=== PATIENT | female | born 1990 | race Caucasian/White ===

== ENCOUNTER 2020-10-22 21:04 | Emergency (ER) | payer OTHER ==
--- NOTE | 2020-10-22 21:21 | NUR ---
PT LEFT WITHOUT BEING TRIAGED ABD BE SEEN BY DR. BLAINE JACKMAN AND HER SHE WOULD LIKE TO HAVE AN ENDOSCOPY IN ER, PT LEFT WITHOUT BEING TRIAGED. PT WAS ADVISED TO COME BACK TO THE ER FOR ANY EMERGENCIES.
== END 2020-10-22 21:25 | disposition left against medical advice (07) ==
LOC: ER 21:08
DX: Z53.21 Procedure and treatment not carried out due to patient leaving prior to being seen by health care provider (principal)

== ENCOUNTER → 2023-03-03 | Emergency (ER) | payer OTHER ==
[~2023-03-03] VITALS: Ht 157.5 cm; Wt 56.2 kg
[~2023-03-03] MED LIST: LORAZEPAM 1 MG TABLET ONE; LORAZEPAM 1 MG TABLET PO ONE
[2023-03-03 17:19] LABS: APPEARANCE,URINE SLIGHTLY CLOUDY (CLEAR); BILIRUBIN,URINE NEGATIVE (NEGATIVE); BLOOD, URINE TRACE-INTA Ery/uL (NEGATIVE); COLOR,URINE YELLOW (YELLOW); KETONES,URINE 2+ mg/dL (NEGATIVE); LEUKOCYTE ESTERASE ,URINE NEGATIVE (NEGATIVE); NITRITE, URINE NEGATIVE (NEGATIVE); PH,URINE 8.5 (5.0-8.0); PROTEIN,URINE NEGATIVE (NEGATIVE); UGLUCOSE NEGATIVE (NEGATIVE)
[2023-03-03 17:25] LABS: PREGNANCY TEST URINE QUAL NEGATIVE (NEGATIVE)
[2023-03-03 17:38] VITALS: BP 126/72; TEMP 98.5; O2SAT 100
[2023-03-03 17:47] LABS: RBC,URINE 0-2 /HPF (0-2); WBC,URINE NONE SEEN /HPF (0-3)
[2023-03-03 17:48] LABS: ADD URINE CULTURE NO; BACTERIA,URINE None seen /HPF (None Seen)
[2023-03-03 17:50] LABS: URINE AMORPHOUS PHOSPHATES Moderate /HPF (None Seen)
== END | disposition home or self-care (01) ==
LOC: ER 15:47
DX: M54.9 Dorsalgia, unspecified (principal); F41.9 Anxiety disorder, unspecified; Z88.8 Allergy status to other drugs, medicaments and biological substances; V43.52XA Car driver injured in collision with other type car in traffic accident, initial encounter; Y93.89 Activity, other specified; Y92.89 Other specified places as the place of occurrence of the external cause; Y99.8 Other external cause status
CPT/HCPCS: 81001; 84703-TC